=== PATIENT | male | born 1990 | race African-American/Black ===

== ENCOUNTER 2020-11-19 09:34 | Emergency (ER) | payer SELFPAY ==
[2020-11-19 11:11] LABS: BASOPHIL 0.5 % (0-2); EOSINOPHIL 0.4 % (0-5); HGB 16.1 g/dl (13.2-18.0); LYMPHOCYTE 23.4 % (15-48); MCH 30.8 pg (25.0-31.0); MCHC 34.3 g/dL (32.0-36.0); MONOCYTE 5.3 % (0-12); MPV 9.7 fL (6.0-9.5); NRBC 0; PLT 310 K/uL (150-400); RBC 5.22 M/uL (4.70-6.00); RDW 12.5 % (11.5-14.0); WBC 7.7 K/uL (4.0-10.5)
[2020-11-19 11:24] LABS: ALBUMIN 3.9 g/dL (3.4-5.0); BILIRUBIN - TOTAL 0.4 mg/dL (0.2-1.0); BUN/CREAT RATIO (CALC) 22.2 RATIO; CREATININE 0.9 mg/dL (0.67-1.17); GLOBULIN (CALCULATION) 3.8 g/dL; POTASSIUM 4.4 mmol/L (3.5-5.1); TOTAL PROTEIN 7.7 g/dL (6.4-8.2)
[2020-11-19] MEDS ORDERED: BENTYL10 MG PO (12:00)
[2020-12-18] MEDS ORDERED: NORVASC5 MG PO (08:58)
== END 2020-11-19 12:19 | disposition home or self-care (01) ==
LOC: FER 09:34
PROVIDERS: Emergency Medicine
DX: K42.9 Umbilical hernia without obstruction or gangrene (principal)
CPT/HCPCS: 36415; 74019; 80053; 85025

== ENCOUNTER → 2020-12-26 | Day surgery (SDC) | payer OTHER ==
[~2020-12-26] VITALS: Ht 180.3 cm; Wt 124.7 kg
[~2020-12-26] MED LIST: BENTYL10 MG PO; NORVASC5 MG PO; PERCOCET 5-3251 EACH PO
[2020-12-26 09:24] LABS: BUN/CREAT RATIO (CALC) 13.3 RATIO; CREATININE 0.9 mg/dL (0.67-1.17)
== END | disposition home or self-care (01) ==
LOC: FAS 07:56
PROVIDERS: Anesthesiology
DX: K42.9 Umbilical hernia without obstruction or gangrene (principal); K43.9 Ventral hernia without obstruction or gangrene; I10 Essential (primary) hypertension; E66.9 Obesity, unspecified; F17.210 Nicotine dependence, cigarettes, uncomplicated; Z79.899 Other long term (current) drug therapy; Z68.39 Body mass index [BMI] 39.0-39.9, adult; Z91.010 Allergy to peanuts
CPT/HCPCS: 36415; 80048; 93005; J0690; J2250; J2405; J2704; J3010; J3490; J7120

== ENCOUNTER 2021-01-16 18:55 | Emergency (ER) | payer OTHER ==
[2021-01-16 21:14] LABS: BASOPHIL 0.4 % (0-2); EOSINOPHIL 0.4 % (0-5); HCT 49.5 % (42.0-52.0); HGB 17.5 g/dl (13.2-18.0); LYMPHOCYTE 16.4 % (15-48); MCH 30.4 pg (25.0-31.0); MCHC 35.4 g/dL (32.0-36.0); MCV 86.1 fL (78.0-100.0); MPV 9.3 fL (6.0-9.5); NEUTROPHIL 77.5 % (41-80); NRBC 0; PLT 345 K/uL (150-400); RBC 5.75 M/uL (4.70-6.00); RDW 12.1 % (11.5-14.0); WBC 7.8 K/uL (4.0-10.5)
[2021-01-16 21:20] LABS: ALBUMIN 4.6 g/dL (3.4-5.0); BILIRUBIN - TOTAL 0.4 mg/dL (0.2-1.0); BUN/CREAT RATIO (CALC) 19.2 RATIO; CREATININE 0.78 mg/dL (0.67-1.17); POTASSIUM 3.6 mmol/L (3.5-5.1); TOTAL PROTEIN 8.6 g/dL (6.4-8.2)
[2021-01-16 21:50] LABS: BILIRUBIN NEGATIVE (NEGATIVE); BLOOD NEGATIVE Ery/uL (NEGATIVE); CLARITY CLOUDY (CLEAR); COLOR YELLOW (YELLOW); GLUCOSE (U) NORMAL (NORMAL); LEUKOCYTES NEGATIVE Leu/uL (NEGATIVE); NITRITE NEGATIVE (NEGATIVE); PROTEIN TRACE (LOW) mg/dL (NEGATIVE); UROBILINOGEN 0.2 mg/dL (0.2-1.0)
[2021-01-16 22:36] LABS: URINARY RBC RARE; URINARY WBC RARE
[2021-01-16 22:37] LABS: AMORPHOUS PHOSPHATE CRYSTALS MODERATE
== END 2021-01-17 02:40 | disposition home or self-care (01) ==
LOC: FER 18:55
PROVIDERS: Emergency Medicine
DX: R10.9 Unspecified abdominal pain (principal); R11.2 Nausea with vomiting, unspecified; I10 Essential (primary) hypertension; F17.210 Nicotine dependence, cigarettes, uncomplicated; Z98.890 Other specified postprocedural states; Z91.010 Allergy to peanuts; Z79.899 Other long term (current) drug therapy
CPT/HCPCS: 36415; 80053; 81001; 83690; 85025; J1170; J2405; J7030; Q9967